=== PATIENT | male | born 1940 | race Caucasian/White ===

== ENCOUNTER 2022-08-23 10:23 | Outpatient (RCR) | payer OTHER, SELFPAY | END 2022-08-23 23:59 | disposition home or self-care (01) | LOC: CR 10:23 | PROVIDERS: Visit Provider Internal Medicine Cardiovascular Disease | DX: I48.91 Unspecified atrial fibrillation (principal); I50.30 Unspecified diastolic (congestive) heart failure | CPT/HCPCS: S9472 ==

== ENCOUNTER 2022-08-28 10:00 | Outpatient (RCR) | payer OTHER, MEDICARE, SELFPAY | END 2022-09-22 23:59 | disposition home or self-care (01) | LOC: CR 10:00 | PROVIDERS: Visit Provider Internal Medicine Cardiovascular Disease | DX: I50.9 Heart failure, unspecified (principal) | CPT/HCPCS: S9472 ==